=== PATIENT | female | born 1970 | race Caucasian/White ===

== ENCOUNTER 2016-07-29 12:52 | Outpatient (CLI) | payer OTHER ==
[~2016-07-29 12:52] MED LIST: ADVIL200 M1 PO; CYMBALTA30 MG PO; MULTIVITAMIN1 TAB PO; NASACORT; TRAMADOL HCL50 MG PO
--- NOTE | 2016-07-29 14:30 | DIAGNOSTIC IMAGING REPORT ---
PROCEDURE: MR CERVICAL SPINE W/O CONT INDICATION: CHRONIC NECK PAIN,C5-6 PAIN TECHNIQUE: Noncontrast T1, T2, and STIR sagittal images. T2 and gradient axial images. COMPARISON: CT cervical spine 04/14/2011 FINDINGS: Normal alignment with mild to moderate degenerative changes. Straightening of the cervical spine suggestive of muscular spasm. No fracture or suspicious osseous lesions. Normal cervical cord. Paraspinal soft tissues are unremarkable. C2-3: Normal appearance. C3-4: Small disc bulge and uncovertebral degenerative changes resulting in moderate right and mild left foraminal stenosis. There is mild spinal stenosis. C4-5: Mild right foraminal disc bulge/uncovertebral degenerative changes with moderate right foraminal stenosis. No spinal stenosis. C5-6: Moderate left foraminal disc protrusion superimposed on a broad-based disc bulge with uncovertebral degenerative changes resulting in moderate left foraminal stenosis. There is moderate spinal stenosis with mild flattening of the cord. C6-7: Mild broad-based disc bulge and uncovertebral degenerative changes resulting in moderate bilateral foraminal stenosis. There is mild spinal stenosis. C7-T1: Normal appearance. IMPRESSION: 1. Mild to moderate multilevel degenerative changes of the spine with multilevel disc bulging 2. Loss of lordosis suggestive of muscular spasm 3. Moderate right and mild left C3-4, moderate right C4-5, moderate left C5-6 and moderate bilateral C6-7 foraminal stenosis 4. Mild C3-4, moderate C5-6 and mild of C6-7 spinal stenosis.
== END 2016-07-29 23:00 ==
LOC: MRI SRH 12:52
DX: M50.30 Other cervical disc degeneration, unspecified cervical region (principal); M48.02 Spinal stenosis, cervical region